=== PATIENT | female | born 1965 | race Caucasian/White ===

== ENCOUNTER 2020-08-06 12:28 | Inpatient (IN) | payer MEDICAID ==
[2020-08-06] VITALS (17 sets, daily range): BP systolic 108–145; BP diastolic 53–88
[~2020-08-06] VITALS: Ht 157.5 cm; Wt 80.0 kg
[~2020-08-06 12:28] MED LIST: ALBU18HF2 INH; VANCOMYCIN INJ 1000 MG in NORMAL SALINE 250ml IV.SOLN IV ONE; albuterol 2.5 MG/3 ML nebule NEB ONE; cefazolin/dext.iso 2gm/100ml 100 ML IV ONE; famotidine 20mg tablet PO ONE; ringers solution, lacted 1,000 ML IV SCH
[2020-08-06 13:30] LABS: BASOPHILS % (AUTO) 0.5 % (0-1); EOSINOPHILS # (AUTO) 0.2 X10'3 (0-0.9); EOSINOPHILS % (AUTO) 2.1 % (0-6); LYMPHOCYTES # (AUTO) 2.6 X10'3 (1.1-4.8); LYMPHOCYTES % (AUTO) 27.9 % (21-51); MEAN CORPUSCULAR HEMOGLOBIN 31.2 PG (27.0-31.0); MEAN CORPUSCULAR HGB CONC 33.5 g/dL (33.0-36.5); MEAN CORPUSCULAR VOLUME 93.1 FL (78-98); MEAN PLATELET VOLUME 9.2 FL (7.4-10.4); MONOCYTES # (AUTO) 0.8 X10'3 (0-0.9); NEUTROPHILS # (AUTO) 5.8 X10'3 (1.8-7.7); NEUTROPHILS % (AUTO) 61.5 % (42-75); PRE OP HEMATOCRIT 39.8 % (35.0-45.0); PRE OP HEMOGLOBIN 13.4 g/dL (12.0-16.0); PRE OP PLATELET COUNT 252 X10'3 (140-440); RED BLOOD COUNT 4.28 X10'6 (4.20-5.60)
[2020-08-06 13:45] LABS: ALBUMIN 3.7 G/DL (3.4-5.0); ALBUMIN/GLOBULIN RATIO 0.9 (1.1-1.5); ALKALINE PHOSPHATASE 100 IU/L (46-116); BLOOD UREA NITROGEN 15 MG/DL (7-18); BUN/CREATININE RATIO 23.1 (6.6-38.0); CALCIUM 9.4 MG/DL (8.5-10.1); CHLORIDE 107 MMOL/L (99-107); CREATININE 0.65 MG/DL (0.40-0.90); PRE OP ALT 17 U/L (30-65); PRE OP ANION GAP 12 (8-16); PRE OP AST 12 U/L (10-37); PRE OP BILIRUB, TOTAL 0.4 MG/DL (0.0-1.0); PRE OP GLUCOSE 92 MG/DL (70-104); PRE OP POTASSIUM 3.7 MMOL/L (3.4-5.1); PRE OP SODIUM 145 MMOL/L (135-145); TOTAL CARBON DIOXIDE 25.8 MMOL/L (24-32); TOTAL PROTEIN 7.7 G/DL (6.4-8.2); eGFR > 90 ML/MIN
[2020-08-06] MEDS ORDERED: fentaNYL/PF 50MCG/1 ML 2ML syringe ONE (13:51)
[2020-08-06] MEDS ORDERED: MIDAZolam 1 MG/ML 5ML VIAL ONE (13:51)
[2020-08-06] MEDS ORDERED: ROPIVAcaine 0.5% (5mg/ml) 30ml vial ONE (13:58)
[2020-08-06] MEDS ORDERED: dexamethasone sod phosphate 4mg/ml inj. ONE (13:58)
[2020-08-06] MEDS ORDERED: BUPIVAcaine/PF 7.5mg/ml (0.75%) 10ml vial ONE (14:39)
[2020-08-06] MEDS ORDERED: morphine 2 MG/ML inj. syringe IV PRN (15:00)
[2020-08-06] MEDS ORDERED: morphine 4 MG/ML inj SYRINge IV PRN (15:00)
[2020-08-06] MEDS ORDERED: ringers solution, lacted 1,000 ML IV SCH (15:00)
[2020-08-06] MEDS ORDERED: meperidine/PF 25mg/ml syringe IV PRN ×3 (15:00)
[2020-08-06] MEDS ORDERED: ondansetron/PF 4mg/2ml inj IV PRN ×2 (15:00→16:30)
[2020-08-06] MEDS ORDERED: proCHLORperazine 10 MG/2 ml inj IV PRN (15:00)
--- NOTE | 2020-08-06 15:38 | NUR ---
Received from OR via [facility], accompanied by Anesthesiologist LAM and report given by Anesthesiolgist. PT. ARRIVED ON O2 AT 3 L VIA NC. AROUSABLE. IV IN R. AC 20 G. CDIWITH LR INFUSING AT 100 ML/HR. DENIES PAIN AT THIS TIME. VSSFrancisco POPE APPLIED FOR REPORT OF BEING COLD. L. ANKLE SPLINT CDI. PT. CANNOT MOVE TOES OR FEEL NURSE TOUCHING TOES AT THIS TIME D/T SPINAL. PULSES AND SENSATION INTACT IN ALL NON-OPERATIVE EXTREMITIES. Addendum: 08/06/20 at 1616 by Aileen Thomas RN Amended: Links added.
[2020-08-06] MEDS ORDERED: albuterol 2.5 MG/3 ML nebule NEB PRN (16:25)
[2020-08-06] MEDS ORDERED: bisacodyl 10mg suppository rectal RC PRN (16:30)
[2020-08-06] MEDS ORDERED: diphenhydrAMINE 25mg capsule PO PRN (16:30)
[2020-08-06] MEDS ORDERED: magnesium hydroxide 30ml (MOM) UD suspension PO PRN (16:30)
[2020-08-06] MEDS ORDERED: HYDROmorphone 1 mg/ml syringe IV PRN (16:30)
[2020-08-06] MEDS ORDERED: HYDROmorphone inj. 0.5 MG/0.5 ML DISP.SYRIN IV PRN (16:30)
[2020-08-06] MEDS ORDERED: acetaminophen 325mg tablet PO PRN (16:30)
[2020-08-06] MEDS ORDERED: potassium cl 20mEq in 1/2 NS 1,000 ML IV SCH (16:30)
[2020-08-06] MEDS ORDERED: HYDROcodone/acetaminophen 10/325mg tab PO PRN (16:30)
--- NOTE | 2020-08-06 17:18 | NUR ---
REPORT CALLED TO JOSE. PATIENT HAS MET ALL CRITERIA FOR TRANSFER TO THE ORTHO FLOOR. VSS. DRESSING INTACT ON LLE. LR CONTINUES INFUSING IN R. AC 20 G IV. CDI. SPINAL AND X2 NERVE BLOCKS STILL WORKING. NO PAIN IN L. LEG AND NO SENSATION AT TOES AT THIS TIME. PT. TRANSFERED TO BED WITH TRAPEZE. PT. TOLERATED WELL. GOWN CHANGED ALONG WITH THE COVERS. BED LOW, CALL LIGHT PRESENT AND 2 RAILS UP. RN PRESENT TO ACCEPT CARE OF PATIENT. ALL QUESTIONS ANSWERED FOR ACCEPTING RN. Addendum: 08/06/20 at 1733 by Aileen Thomas RN Amended: Links added.
--- NOTE | 2020-08-06 18:16 | NUR ---
Problems reprioritized. Patient report given, questions answered & plan of care reviewed with Yoana CHRISTIANSON.
--- NOTE | 2020-08-06 18:35 | NUR ---
Patient in room ORTHO 4013. I have received report from Jessie and had the opportunity to ask questions and assume patient care.
--- NOTE | 2020-08-06 19:00 | NUR ---
Not able to palpate the dorsalis pedis pulse or post tib pulse on the left lower extremity ,due to the splint to the left leg. Toes are warm and she is able to wiggle the toes and cap refill is <3 seconds. Addendum: 08/06/20 at 2257 by Yoana Britton RN Amended: Links added.
--- NOTE | 2020-08-06 19:00 | NUR ---
No void yet post op, will continue to monitor Addendum: 08/06/20 at 5967 by Yoana Britton RN Amended: Links added.
[2020-08-06] MEDS: diphenhydrAMINE 25mg capsule PO PRN (19:25)
[2020-08-06] MEDS ORDERED: sennosides 8.6mg tablet PO SCH (21:00)
[2020-08-06] MEDS: ascorbic acid 500mg tablet PO SCH (21:03)
[2020-08-06] MEDS: HYDROcodone/acetaminophen 10/325mg tab PO PRN (23:10)
[2020-08-07] MEDS: ceFAZolin/D5W- 1GM premix 50 ML IV SCH ×2 (00:44→07:45)
[2020-08-07] MEDS: diphenhydrAMINE 25mg capsule PO PRN ×2 (01:06→12:55)
[2020-08-07 02:00] VITALS: BP 122/50
--- NOTE | 2020-08-07 02:00 | NUR ---
Bladder scan for 678 and no void since surgery but was able to void on bedpan 600 out.
[2020-08-07] MEDS: HYDROcodone/acetaminophen 10/325mg tab PO PRN ×2 (05:42→11:07)
[2020-08-07 06:00] VITALS: BP 149/73
[2020-08-07 06:10] LABS: BASOPHILS % (AUTO) 0.1 % (0-1); EOSINOPHILS % (AUTO) 0 % (0-6); HEMATOCRIT 37.2 % (35.0-45.0); HEMOGLOBIN 12.2 g/dl (12.0-16.0); LYMPHOCYTES # (AUTO) 1.5 X10'3 (1.1-4.8); MEAN CORPUSCULAR HGB CONC 32.9 g/dL (33.0-36.5); MEAN CORPUSCULAR VOLUME 94.4 FL (78-98); MEAN PLATELET VOLUME 9.6 FL (7.4-10.4); MONOCYTES # (AUTO) 0.5 X10'3 (0-0.9); MONOCYTES % (AUTO) 4.3 % (2-12); NEUTROPHILS # (AUTO) 9.4 X10'3 (1.8-7.7); NEUTROPHILS % (AUTO) 82.6 % (42-75); PLATELET COUNT 222 X10'3 (140-440); RED BLOOD COUNT 3.94 X10'6 (4.20-5.60); WHITE BLOOD COUNT 11.4 X10'3 (4.5-11.0)
[2020-08-07 06:28] LABS: ANION GAP 9 (8-16); CHLORIDE 106 MMOL/L (99-107); POTASSIUM 4.3 MMOL/L (3.5-5.1); SODIUM 142 MMOL/L (135-145)
--- NOTE | 2020-08-07 06:32 | NUR ---
Problems reprioritized. Patient report given, questions answered & plan of care reviewed with Piyush CHRISTIANSON.
[2020-08-07] MEDS: ascorbic acid 500mg tablet PO SCH (07:45)
[2020-08-07] MEDS ORDERED: multivitamins, therapeutics tablet PO SCH (08:00)
[2020-08-07] MEDS ORDERED: aspirin 325mg tablet PO SCH (08:30)
[2020-08-07 10:00] VITALS: BP 121/57
[2020-08-07] MEDS ORDERED: HYDR-3972 PO (10:57)
[2020-08-07] MEDS ORDERED: ENOX40SY7 SUBCUT (11:09)
[2020-08-07] MEDS ORDERED: DOCU-148 PO (11:09)
[2020-08-07] MEDS ORDERED: enoxaparin 40mg/0.4ml syringe SUBCUT ONE (11:10)
--- NOTE | 2020-08-07 12:36 | NUR ---
Low BMI: Initial scaled wt 34.473 kg with BMI 13.9, then updated to 80kg with BMI 32.3. RD help desk intern visualized pt and did not appear with BMI 13.9, likely error. Updated wt likely more accurate. Will continue to follow. Addendum: 08/07/20 at [address] Amended: Links added. Addendum: 08/07/20 at [address] I have reviewed and agree with note by fall internship. Kerline London RD
== END 2020-08-07 13:55 | disposition home or self-care (01) | DRG 313 ==
LOC: PAS IN 12:28 → UNDOADMIN 12:28 → EDSTATUS 15:00 → PAS IN 16:29 → ORTHO 4S 17:11 → PAS IN 17:11 → UNDODISIN 08-07 13:55
PROVIDERS: ADMIT Orthopaedic Surgery; ATTEND Orthopaedic Surgery
PROC: 3E0T3BZ Introduction of Anesthetic Agent into Peripheral Nerves and Plexi, Percutaneous Approach (ICD-10-PCS; 2020-08-06)
PROC: 3E0T33Z Introduction of Anti-inflammatory into Peripheral Nerves and Plexi, Percutaneous Approach (ICD-10-PCS; 2020-08-06)
PROC: 0QSK04Z Reposition Left Fibula with Internal Fixation Device, Open Approach (ICD-10-PCS; principal; 2020-08-06 13:52)
DX: S82.842A Displaced bimalleolar fracture of left lower leg, initial encounter for closed fracture (principal); K90.0 Celiac disease; X58.XXXA Exposure to other specified factors, initial encounter; Z79.899 Other long term (current) drug therapy; Y93.89 Activity, other specified; Y92.89 Other specified places as the place of occurrence of the external cause; Y99.8 Other external cause status
CPT/HCPCS: 36415; 73600; 76000; 80051; 80053; 85025; 87426; 93005; 94640; 94760; 97116; 97161; 97530; A4618; A6222; A6449; A7000; C1713; G0378; J0690; J1100; J1170; J1650; J2250; J2795; J3010; J3370; J3480; J3490; J7120; Q0163